=== PATIENT | male | born 2000 | race Caucasian/White ===

== ENCOUNTER 2022-11-25 20:48 | Emergency (ER) | payer SELFPAY | END 2022-11-25 22:30 | disposition home or self-care (01) | LOC: CSHERS 20:48 | DX: S93.601A Unspecified sprain of right foot, initial encounter (principal); S96.911A Strain of unspecified muscle and tendon at ankle and foot level, right foot, initial encounter; M77.41 Metatarsalgia, right foot; X58.XXXA Exposure to other specified factors, initial encounter ==